=== PATIENT | female | born 1935 | race Caucasian/White ===

== ENCOUNTER 2025-04-12 20:41 | Emergency (ER) | payer OTHER ==
[~2025-04-12] VITALS: Ht 165.1 cm; Wt 84.0 kg
--- NOTE | 2025-04-12 21:00 | ED.PDOC ---
History of Present Illness HPI Comments 89 year old female presents to the ED via EMS with a chief complaint of fall injury onset today (04/12/25). Patient was walking on her porch, when she tripped, fell forward, hitting her face on the floor. Immediately after fall, patient began experiencing epistaxis, headache, RT hip pain, RT knee pain, dizzi ness. Upon EMS arrival, patient was weak, not able to ambulate on her own, placed on a c-collar. Upon ED arrival BP was 163/130. PMHx HLD. Denies LOC, nausea, vomiting, diarrhea, chest pain, shortness of breath, abdominal pain, dysuria, hematuria, fevers, chills. No other symptoms or modifying factors present at this time. Time Seen by MD: 20:50 Reviewed Notes: Medications, Allergies Allergies: Coded Allergies: NO KNOWN ALLERGIES (Unverified , 04/12/25) Information Source: Patient, Emergency Med Personnel Mode of Arrival: EMS Severity: Moderate Timing: Hours Duration: Since onset Prehospital treatment: C-Collar Vital Signs Vital Signs Date Time Temp Pulse Resp B/P (MAP) Pulse Ox O2 Delivery O2 Flow Rate FiO2 04/13/25 01:50 98.3 72 22 148/72 (97) 93 98.3 04/12/25 22:35 Room Air* 0 21 Physical Exam General: Awake, alert and oriented. No acute distress. Skin: Skin in warm, dry and intact. Appropriate color for ethnicity. HEENT: The head is normocephalic and atraumatic. Conjunctivae are clear without exudates or hemorrhage. Sclera is non-icteric. EOM are intact. No signs of nystagmus. Eyelids are normal in appearance without swelling or lesions. Oral mucosa is pink and moist. Epistaxis from left naris showed with pressure. Neck: Patient is C-collar. The neck is supple with normal range of motion. No JVD. Positive C-spine tenderness. Cardiac: Heart rate and rhythm are normal. No murmurs, gallops, or rubs are auscultated. Respiratory: No signs of respiratory distress. Lung sounds are clear in all lobes bilaterally without rales, rhonchi, or wheezes. Abdominal: Abdomen is soft, non-tender without distention, guarding or rigidity. Bowel sounds are present and normoactive in all four quadrants. Extremities: Right hip tender. Mild abrasion over right anterior knee. Positive tenderness. No effusion, deformity.Positive L-spine tenderness. Neurological: The patient is awake, alert and oriented to person, place, and time with normal speech. Speech is clear. There is no facial asymmetry. Moving all extremities spontaneously. Psychiatric: Appropriate mood and affect. Good judgement and insight. Review of Systems: As stated in HPI Past Medical History PAST MEDICAL HISTORY: High Lipids Surgical History: Denies all surgeries PUBLIC SPEAKER History: No Pertinent PUBLIC SPEAKER History Family History Family History: Reviewed,noncontributory to illness, No family hx of Cancer, No family hx of DM, No family hx of Heart bibi, No family hx of HTN, No family hx ofKidney bibi, No family hx of Liver bibi, No family hx of Lung bibi, No family hx of Stroke Social History Smoker: Non-Smoker Alcohol: Denies ETOH Use Drugs: Denies Drug Use Lives In: Home Was a procedure done? Was a procedure done?: No EKG EKG : Pulse Rate (adult): 98 Cardiac Rhythm: NSR Comments No STEMI Differential Dx Considerations may include: Differential diagnoses considered include but are not limited to closed head injury, skull fracture, TBI, long bone fracture, rib fracture, pneumothorax, spinal fracture, spinal injury, cardiac contusion, organ laceration, pelvic fracture, laceration, soft tissue injury, vascular injury, other X-Ray, Labs, Meds, VS Vital Signs Date Time Temp Pulse Resp B/P (MAP) Pulse Ox O2 Delivery O2 Flow Rate FiO2 04/13/25 01:50 98.3 72 22 148/72 (97) 93 98.3 04/13/25 01:05 75 14 137/83 (101) 96 04/13/25 00:00 92 04/12/25 23:01 98.2 87 22 132/56 (81) 96 98.2 04/12/25 22:35 92 16 94 Room Air* 0 21 04/12/25 21:45 83 20 165/72 (103) 98 04/12/25 21:11 97.6 100 20 182/89 (120) 96 97.6 04/12/25 21:00 98 04/12/25 20:44 98 Lab Test 04/12/25 22:20 04/12/25 21:13 Range/Units Troponin I High Sensitivity 5 5 </=34 ng/L White Blood Count 7.6 4.4-10.8 10^3/uL Red Blood Count 5.28 H 4.0-5.20 10^6/uL Hemoglobin 15.9 12.2-16.2 g/dL Hematocrit 46.6 H 36.0-46.0 % Mean Corpuscular Volume 88.4 80.0-100.0 fL Mean Corpuscular Hemoglobin 30.1 28.0-32.0 pg Mean Corpuscular Hemoglobin Concent 34.1 32.0-36.0 g/dL Red Cell Distribution Width 14.8 H 11.8-14.3 % Platelet Count 193 140-450 10^3/uL Mean Platelet Volume 7.7 6.9-10.8 fL Neutrophils (%) (Auto) 74.1 37.0-80.0 % Lymphocytes (%) (Auto) 16.3 10.0-50.0 % Monocytes (%) (Auto) 7.8 0.0-12.0 % Eosinophils (%) (Auto) 1.1 0.0-7.0 % Basophils (%) (Auto) 0.7 0.0-2.0 % Neutrophils # (Auto) 5.6 1.6-8.6 10 ^3/uL Lymphocytes # (Auto) 1.2 0.4-5.4 10 ^3/uL Monocytes # (Auto) 0.6 0-1.3 10 ^3/uL Eosinophils # (Auto) 0.1 0-0.8 10 ^3/uL Basophils # (Auto) 0.1 0-0.2 10 ^3/uL Nucleated Red Blood Cells 0.2 % Sodium Level 140 136-145 mmol/L Potassium Level 4.0 3.5-5.1 mmol/L Chloride Level 106 98-107 mmol/L Carbon Dioxide Level 26 20-31 mmol/L Anion Gap 8 5-15 Blood Urea Nitrogen 19 9-23 mg/dL Creatinine 1.30 H 0.550-1.02 mg/dL Glomerular Filtration Rate Calc 40 >90 mL/min BUN/Creatinine Ratio 14.6 10.0-20.0 Serum Glucose 120 H 74-106 mg/dL Calcium Level 10.3 8.7-10.4 mg/dL B-Type Natriuretic Peptide 127.47 0-100 pg/mL Current Medications Medications (Trade) Dose Ordered Sig/Chirag Route Start Time Stop Time Status Last Admin Sodium Chloride 1,000 ml @ 1,000 mls/hr Q1H ONCE IV 04/12/25 21:00 04/12/25 21:59 DC 04/12/25 21:55 Acetaminophen (Tylenol Tablet) 650 mg ONCE ONCE PO 04/12/25 21:00 04/12/25 21:01 DC 04/12/25 21:55 Sodium Chloride 1,000 ml @ 100 mls/hr Q10H ONCE IV 04/12/25 23:00 04/13/25 08:59 04/12/25 23:00 Naproxen (Naprosyn Tablet) 500 mg ONCE ONCE PO 04/13/25 00:00 04/13/25 00:01 DC 04/13/25 00:04 [place] [address] Ph: [phone] DIAGNOSTIC IMAGING Diagnostic Imaging Report : [id number] Signed PATIENT: MARICARMEN MAJOR ACCT: [id number] UNIT: [id number] : 1935 LOC: ER ROOM / BED: / AGE / SEX: 89 / F ADM STATUS: REG ER SERVICE 49 ORDERING PHYSICIAN: CAITLIN ASHRAF MD PROCEDURE(s): LS2CT - LS SPINE WO CONTRAST REASON: fall injury ORDER NUMBER(s): [id number], ACCESSION NUMBER(s): [id number] EXAM: CT LS SPINE WO CONTRAST INDICATION: fall injury TECHNIQUE: Axial images of the lumbar spine have been obtained along with coronal and sagittal reformatted images. CT scans at this facility use dose modulation, iterative reconstruction, and/or weight based dosing when appropriate to reduce radiation dose to as low as reasonably achievable. Dosage: CTDI 36.11. DLP: 1533.21 COMPARISON: None FINDINGS: 5 ltm-xrm-acyffqu lumbar-type vertebrae. Grade 1 anterolisthesis of L4 on L5 . L1 inferior endplate Schmorl node. Multilevel moderate to severe degenerative changes of the lumbar spine. Chronic fracture deformity of the right transverse process of L3. Diffuse demineralization. Severe degenerative changes of the right hip with moderate degenerative changes of the left hip. T12-L1: Mild posterior disc bulge without significant spinal canal stenosis. Bprn-bd-avjjvsqy bilateral neural foramina stenosis. L1-L2: Posterior disc osteophyte complex without significant spinal canal stenosis. Severe right with mild to moderate left-sided neural foramina s tenosis. L2-L3: Mild posterior disc bulge without significant spinal canal stenosis. Zkam-vm-xntpxrfj right with severe left-sided neural foramina stenosis. L3-L4: Mild posterior disc bulge without significant spinal canal stenosis. Moderate right with severe left-sided neural foramina stenosis. L4-L5: No significant spinal canal stenosis. Gnnr-aa-lkyiwzaf bilateral neural foramina stenosis. L5-S1: Significant spinal canal stenosis. Severe left-sided neural foramina stenosis. The paraspinal muscles are unremarkable. Sigmoid diverticulosis without diverticulitis. Moderate amount of fecal material within the visualized colon. Partially imaged large hiatal hernia. Absq-ax-kpjayung atrophy of bilateral kidneys. Left renal parapelvic cysts. Mild wall thickening of the urinary bladder may be due to inadequate distention. 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 Ewch-ik-wbaezytm atherosclerotic calcification of the aorta and bilateral iliacs. Left basilar ground-glass and solid opacities which may represent atelectasis with pneumonia not excluded. Right basilar atelectasis. IMPRESSION: No evidence of acute traumatic fractures. Multilevel moderate to severe degenerative changes as detailed above. If symptoms persist, consider MRI for further evaluation. ATED BY: DARIELA ATKINS DO DICTATED DATE/TIME: 04/12/252199 SIGNED BY: DARIELA ATKINS DO SIGNED DATE/TIME: 04/12/252199 CC: [place] [address] Ph: [phone] DIAGNOSTIC IMAGING Diagnostic Imaging Report : [id number] Signed PATIENT: MARICARMEN MAJOR ACCT: [id number] UNIT: [id number] : 1935 LOC: ER ROOM / BED: / AGE / SEX: 89 / F ADM STATUS: REG ER SERVICE 49 ORDERING PHYSICIAN: CAITLIN ASHRAF MD PROCEDURE(s): RKN3 - R KNEE 3V XRAY REASON: fall injury ORDER NUMBER(s): [id number], ACCESSION NUMBER(s): [id number] CLINICAL INDICATION: fall injury TECHNIQUE: 3 radiographic views of the right knee were obtained. Comparison: None FINDINGS/IMPRESSION: There is no evidence of acute fracture or dislocation. Narrowing of all 3 compartments of the right knee suggests degenerative or arthritic changes. No acute fracture is noted. The alignment is anatomical. There is no radiopaque foreign body. ATED BY: MICHEAL OCONNOR Jr., DO DICTATED DATE/TIME: 04/12/252145 SIGNED BY: MICHEAL OCONNOR Jr., DO SIGNED DATE/TIME: 04/12/252145 CC: [place] [address] Ph: [phone] DIAGNOSTIC IMAGING Diagnostic Imaging Report : [id number] Signed PATIENT: MARICARMEN MAJOR ACCT: [id number] UNIT: [id number] : 1935 LOC: ER ROOM / BED: / AGE / SEX: 89 / F ADM STATUS: REG ER SERVICE 49 ORDERING PHYSICIAN: CAITLIN ASHRAF MD PROCEDURE(s): RHIP - R HIP COMPLETE XRAY REASON: fall injury ORDER NUMBER(s): [id number], ACCESSION NUMBER(s): [id number] CLINICAL INDICATION: fall injury TECHNIQUE: 3 radiographic views of the right hip were obtained. Comparison: None FINDINGS/IMPRESSION: There is normal configuration of the right femoral head and neck junction which may be from degenerative changes. Otherwise, no evidence of acute fracture or dislocation. Severe degenerative changes of the right with moderate degenerative changes of the left hips. Severe degenerative changes of the lower lumbar spine. Mild degenerative changes of bilateral SI joints. The alignment is anatomical. Phleboliths are noted within the pelvis. Moderate amount of fecal material within the visualized colon. If patient can not ambulate, consider CT for further evaluation. ATED BY: DARIELA ATKINS DO DICTATED DATE/TIME: 04/12/252200 SIGNED BY: DARIELA ATKINS DO SIGNED DATE/TIME: 04/12/252200 CC: [place] [address] Ph: [phone] DIAGNOSTIC IMAGING Diagnostic Imaging Report : [id number] Signed PATIENT: MARICARMEN MAJOR ACCT: [id number] UNIT: [id number] : 1935 LOC: ER ROOM / BED: / AGE / SEX: 89 / F ADM STATUS: REG ER SERVICE 49 ORDERING PHYSICIAN: CAITLIN ASHRAF MD PROCEDURE(s): HWOCT - HEAD WITHOUT CONTRAST REASON: fall injury ORDER NUMBER(s): [id number], ACCESSION NUMBER(s): [id number] CT HEAD WITHOUT CONTRAST INDICATION: fall injury, head injury EXAM DATE: 04/12/2025 09:13 PM COMPARISON: None RADIATION DOSE: CTDIvol: 57.26 mGy, DLP: 1128.42 mGy*cm PROCEDURE: CT scans of the head were obtained from the vertex to the skull base. Sagittal and coronal reconstructions were provided. All CT scans at this medical facility are performed using dose modulation techniques as appropriate to a performed exam including the following: Automated exposure control was utilized; adjustment of the MA and/or KV according to patient size; and use of iterative reconstruction technique. FINDINGS: No acute territorial infarct, intracranial hemorrhage, or mass effect. There are global involutional changes with compensatory prominence of the ventricles and sulci. Patchy periventricular and subcortical white matter hypoattenuation is nonspecific but may be related to small vessel ischemic disease. The orbits are normal. There is debris within the sphenoid sinuses. The osseous structures are unremarkable. IMPRESSION: 1. No acute territorial infarct, intracranial hemorrhage, or mass effect. 2. Age-related involutional changes. Chronic microvascular changes. 3. Sphenoid sinus disease. ATED BY: CHANDRIKA BLEVINS MD DICTATED DATE/TIME: 04/12/252145 SIGNED BY: CHANDRIKA BLEVINS MD SIGNED DATE/TIME: 04/12/252145 CC: [address] [address] Ph: [phone] DIAGNOSTIC IMAGING Diagnostic Imaging Report : [id number] Signed PATIENT: MARICARMEN MAJOR ACCT: [id number] UNIT: [id number] : 1935 LOC: ER ROOM / BED: / AGE / SEX: 89 / F ADM STATUS: REG ER SERVICE 49 ORDERING PHYSICIAN: CAITLIN ASHRAF MD PROCEDURE(s): CS2 - CERVICAL WITHOUT CONTRAST REASON: fall injury ORDER NUMBER(s): [id number], ACCESSION NUMBER(s): [id number] CT OF THE CERVICAL SPINE WITHOUT CONTRAST HISTORY: fall injury, neck pain COMPARISON: None TECHNIQUE: Helical images through the cervical spine were obtained without contrast. Sagittal and coronal reformats were obtained. One or more of the following radiation dose reduction techniques were used for this examination: automated exposure control, adjustment of the mA and/or kV according to patient size, use of iterative reconstruction technique. Dose: CTDIvol: 21.64, DLP: 553.07 mGy.cm FINDINGS: No acute displaced fracture. Degenerative changes of the cervical spine characterized by endplate osteophytosis and intervertebral disc space narrowing. A disc osteophyte complex at C5-6 effaces the thecal sac. There is minimal grade 1 anterolisthesis of C2 on C3, C7 on T1, T1 on T2, and T2 on T3. Degenerative uncovertebral and facet hypertrophy contributes to multilevel neural foraminal narrowing. There is pleural-parenchymal scarring at the lung apices. There are sncf-hmywwid-ftth-right thyroid nodules containing calcification. Incidental note of fluid levels within the sphenoid sinuses. IMPRESSION: 1. No acute displaced fracture. 2. Degenerative changes of the cervical spine as detailed. 3. Bhqy-gxrxgfy-rgwz-right thyroid nodules, which may be further evaluated with a nonemergent thyroid ultrasound if clinically indicated. 4. Sphenoid sinus disease. ATED BY: CHANDRIKA BLEVINS MD DICTATED DATE/TIME: 04/12/252143 SIGNED BY: CHANDRIKA BLEVINS MD SIGNED DATE/TIME: 04/12/252143 CC: Time of 1ST Reevaluation: 21:20 Reevaluation 1ST: Unchanged Patient Education/Counseling: Need For Follow Up Family Education/Counseling: No Family Present SEPSIS Sepsis Screen Physician Orders Electrocardigram (04/12/25 20:47) Pigment And Lacquer Mixer (04/12/25 ) Orthostatic Vital Signs (04/12/25 ) Saline Lock (04/12/25 20:50) Fall Precautions Initiated (04/12/25 20:50) R Hip Complete Xray (04/12/25 20:50) Head Without Contrast (04/12/25 20:50) Cervical Without Contrast (04/12/25 20:50) Ls Spine Wo Contrast (04/12/25 20:50) Vital Signs Q1HR (04/12/25 20:54) Notify Md If Abnormal Vs (04/12/25 20:54) R Knee 3v Xray (04/12/25 20:50) Sodium Chloride 0.9% (04/12/25 23:00) Urinalysis (04/13/25 00:22) Imaging Transfer Request (04/13/25 01:00) Vital Signs Date Time Temp Pulse Resp B/P (MAP) Pulse Ox O2 Delivery O2 Flow Rate FiO2 04/13/25 01:50 98.3 72 22 148/72 (97) 93 98.3 04/13/25 01:05 75 14 137/83 (101) 96 04/13/25 00:00 92 04/12/25 23:01 98.2 87 22 132/56 (81) 96 98.2 04/12/25 22:35 92 16 94 Room Air* 0 21 04/12/25 21:45 83 20 165/72 (103) 98 04/12/25 21:11 97.6 100 20 182/89 (120) 96 97.6 04/12/25 21:00 98 04/12/25 20:44 98 Laboratory Tests Test 04/12/25 21:13 White Blood Count 7.6 10^3/uL (4.4-10.8) Medications Medications Dose Ordered Sig/Chirag Route Start Time Stop Time Status Last Admin Dose Admin Acetaminophen 650 mg ONCE ONCE PO 04/12/25 21:00 04/12/25 21:01 DC 04/12/25 21:55 Naproxen 500 mg ONCE ONCE PO 04/13/25 00:00 04/13/25 00:01 DC 04/13/25 00:04 Sodium Chloride 1,000 ml @ 100 mls/hr Q10H ONCE IV 04/12/25 23:00 04/13/25 08:59 04/12/25 23:00 Sodium Chloride 1,000 ml @ 1,000 mls/hr Q1H ONCE IV 04/12/25 21:00 04/12/25 21:59 DC 04/12/25 21:55 Departure 1 Departure Time of Disposition: 22:55 Impression: Primary Impression: Dizziness Additional Impressions: ZACHARIAH (acute kidney injury) Fall Head injury Thyroid nodule Disposition: 02 SHORT TERM HOSPITAL Condition: Stable Comments 89 year old female s/p fall and head injury. Still reporting dizziness, WANG, difficulty ambulation Workup concerning for ZACHARIAH Discussed with Dr. Felipe with [facility], Case #[id number] Patient stable for transfer Extensive evaluation was performed in attempt to identify or rule out: (See differential diagnosis section) The following tests were ordered, and results were reviewed by me and discussed with patient: (See diagnostic results section) The following test were independently interpreted by me: EKG I reviewed and agreed with the following test results read by other providers: CT Head I reviewed the following notes from the pt's past medical encounters: N/A Additional information was gathered from interviewing the following independent historians: EMS personnel Discussion of management or test interpretation with external physician/other qualified health out of school hours care worker: YES Decision regarding hospitalization or escalation of hospital level of care: Risk and benefits of admission for further treatment of patient's condition was considered. Due to patient's current clinical condition, high risk of decline and poor outcome if discharged and need for further inpatient management and monitoring, patient will be admitted to the hospital. Drug therapy requiring intensive monitoring for toxicity: N/A Parenteral controlled substances: N/A Decision regarding elective major surgery with identified patient or procedure risk factors: N/A Decision regarding emergency major surgery: N/A Decision not to resuscitate or to de-escalate care because of poor prognosis: N/A Diagnosis or treatment significantly limited by social determinants of health: N/A Critical Care Note Critical Care Time?: No Stability Stability form required: No I personally scribed for CAITLIN ASHRAF MD ([email or web address]) on 04/12/25 at 21:00. Electronically submitted by Lyly Reeves ([email or web address]). I personally scribed for CAITLIN ASHRAF MD ([email or web address]) on 04/12/25 at 22:13. Electronically submitted by Lyly Reeves ([email or web address]). CAITLIN ASHRAF MD Apr 12, 2025 21:00
[2025-04-12 21:27] LABS: Hematocrit 46.6 % (36.0-46.0); Hemoglobin 15.9 g/dL (12.2-16.2); Mean Corpuscular Hemoglobin 30.1 pg (28.0-32.0); Mean Corpuscular Volume 88.4 fL (80.0-100.0); Nucleated Red Blood Cells % 0.2 %
[2025-04-12 21:35] LABS: Anion Gap 8 (5-15); Carbon Dioxide 26 mmol/L (20-31); Chloride 106 mmol/L (98-107); Potassium 4.0 mmol/L (3.5-5.1); Sodium 140 mmol/L (136-145)
[2025-04-12 21:36] LABS: Calcium 10.3 mg/dL (8.7-10.4)
[2025-04-12 21:41] LABS: BUN/Creatinine Ratio 14.6 (10.0-20.0); Blood Urea Nitrogen 19 mg/dL (9-23)
[2025-04-12 21:44] LABS: Glucose 120 mg/dL (74-106)
--- NOTE | 2025-04-12 21:47 | DVH ---
CT OF THE CERVICAL SPINE WITHOUT CONTRAST HISTORY: fall injury, neck pain COMPARISON: None TECHNIQUE: Helical images through the cervical spine were obtained without contrast. Sagittal and cor onal reformats were obtained. One or more of the following radiation dose reduction techniques were u sed for this examination: automated exposure control, adjustment of the mA and/or kV according to pat ient size, use of iterative reconstruction technique. Dose: CTDIvol: 21.64, DLP: 553.07 mGy.cm FINDINGS: No acute displaced fracture. Degenerative changes of the cervical spine characterized by endplate os teophytosis and intervertebral disc space narrowing. A disc osteophyte complex at C5-6 effaces the t hecal sac. There is minimal grade 1 anterolisthesis of C2 on C3, C7 on T1, T1 on T2, and T2 on T3. D egenerative uncovertebral and facet hypertrophy contributes to multilevel neural foraminal narrowing. There is pleural-parenchymal scarring at the lung apices. There are pokm-smlefgj-nosw-right thyroid n odules containing calcification. Incidental note of fluid levels within the sphenoid sinuses. IMPRESSION: 1. No acute displaced fracture. 2. Degenerative changes of the cervical spine as detailed. 3. Hmsg-hvdldxi-cqok-right thyroid nodules, which may be further evaluated with a nonemergent thyroid ultrasound if clinically indicated. 4. Sphenoid sinus disease.
--- NOTE | 2025-04-12 21:48 | DVH ---
CLINICAL INDICATION: fall injury TECHNIQUE: 3 radiographic views of the right knee were obtained. Comparison: None FINDINGS/IMPRESSION: There is no evidence of acute fracture or dislocation. Narrowing of all 3 compartments of the right knee suggests degenerative or arthritic changes. No acut e fracture is noted. The alignment is anatomical. There is no radiopaque foreign body.
--- NOTE | 2025-04-12 21:49 | DVH ---
CT HEAD WITHOUT CONTRAST INDICATION: fall injury, head injury EXAM DATE: 04/12/2025 09:13 PM COMPARISON: None RADIATION DOSE: CTDIvol: 57.26 mGy, DLP: 1128.42 mGy*cm PROCEDURE: CT scans of the head were obtained from the vertex to the skull base. Sagittal and coronal reconstructions were provided. All CT scans at this medical facility are performed using dose modulation techniques as appropriate t o a performed exam including the following: Automated exposure control was utilized; adjustment of th e MA and/or KV according to patient size; and use of iterative reconstruction technique. FINDINGS: No acute territorial infarct, intracranial hemorrhage, or mass effect. There are global involutional changes with compensatory prominence of the ventricles and sulci. Patchy periventricular and subcorti [place] white matter hypoattenuation is nonspecific but may be related to small vessel ischemic disease. The orbits are normal. There is debris within the sphenoid sinuses. The osseous structures are unrem arkable. IMPRESSION: 1. No acute territorial infarct, intracranial hemorrhage, or mass effect. 2. Age-related involutional changes. Chronic microvascular changes. 3. Sphenoid sinus disease.
[2025-04-12] MEDS: ACETAMINOPHEN 325 MG TAB PO ONE (21:55)
[2025-04-12] MEDS: SODIUM CHLORIDE 0.9% 1,000 ML IV ONE ×2 (21:55→23:00)
--- NOTE | 2025-04-12 22:02 | DVH ---
EXAM: CT LS SPINE WO CONTRAST INDICATION: fall injury TECHNIQUE: Axial images of the lumbar spine have been obtained along with coronal and sagittal reform atted images. CT scans at this facility use dose modulation, iterative reconstruction, and/or weight based dosing when appropriate to reduce radiation dose to as low as reasonably achievable. Dosage: CTDI 36.11. DLP: 1533.21 COMPARISON: None FINDINGS: 5 mei-zed-yibvuhn lumbar-type vertebrae. Grade 1 anterolisthesis of L4 on L5 . L1 inferior endplate S chmorl node. Multilevel moderate to severe degenerative changes of the lumbar spine. Chronic fracture deformity of the right transverse process of L3. Diffuse demineralization. Severe degenerative changes of the right hip with moderate degenerative changes of the left hip. T12-L1: Mild posterior disc bulge without significant spinal canal stenosis. Mcde-tp-itxrppsi bilater al neural foramina stenosis. L1-L2: Posterior disc osteophyte complex without significant spinal canal stenosis. Severe right with mild to moderate left-sided neural foramina stenosis. L2-L3: Mild posterior disc bulge without significant spinal canal stenosis. Dqgu-go-mgxvpraw right wi th severe left-sided neural foramina stenosis. L3-L4: Mild posterior disc bulge without significant spinal canal stenosis. Moderate right with sever e left-sided neural foramina stenosis. L4-L5: No significant spinal canal stenosis. Kkya-mc-kryywxru bilateral neural foramina stenosis. L5-S1: Significant spinal canal stenosis. Severe left-sided neural foramina stenosis. The paraspinal muscles are unremarkable. Sigmoid diverticulosis without diverticulitis. Moderate amount of fecal material within the visualiz ed colon. Partially imaged large hiatal hernia. Jxtl-ph-tsvessqw atrophy of bilateral kidneys. Left r enal parapelvic cysts. Mild wall thickening of the urinary bladder may be due to inadequate distentio n. 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 Rmbj-qj-zfvedbvn atherosclerotic calcification of the aorta and bilateral iliacs. Left basilar ground-glass and solid opacities which may represent atelectasis with pneumonia not excl uded. Right basilar atelectasis. IMPRESSION: No evidence of acute traumatic fractures. Multilevel moderate to severe degenerative changes as detai led above. If symptoms persist, consider MRI for further evaluation.
--- NOTE | 2025-04-12 22:04 | DVH ---
CLINICAL INDICATION: fall injury TECHNIQUE: 3 radiographic views of the right hip were obtained. Comparison: None FINDINGS/IMPRESSION: There is normal configuration of the right femoral head and neck junction which may be from degenerat akhil changes. Otherwise, no evidence of acute fracture or dislocation. Severe degenerative changes of the right with moderate degenerative changes of the left hips. Severe degenerative changes of the lower lumbar spine. Mild degenerative changes of bilateral SI joints. The alignment is anatomical. Phleboliths are noted within the pelvis. Moderate amount of fecal material within the visualized col on. If patient can not ambulate, consider CT for further evaluation.
[2025-04-12 22:35] VITALS: PULSE 92; RESP 16; O2SAT 94
[2025-04-13] MEDS: NAPROXEN 500 MG TAB PO ONE (00:04)
[2025-04-13 01:50] VITALS: BP 148/72; PULSE 72; RESP 22; TEMP 98.3; O2SAT 93
--- NOTE | 2025-04-13 12:07 | ECG ---
[facility] Test Date: 2025-04-12 Test Time: 20:44:10 Pat Name: MARICARMEN MAJOR Department: ED Room: Gender: F Roll Handler: RONNA : 1935 Requested By: CAITLIN ASHRAF Order Number: [id number] Reading MD: [place] Measurements Intervals Counselor Rate: 98 P: -18 RI: 191 QRS: 255 QRSD: 86 T: 76 QT: 342 QTc: 437 Interpretive Statements Sinus rhythm Right superior axis Probable right ventricular hypertrophy Abnormal lateral Q waves Electronically Signed On 04-13-2025 19:07:36 PDT by P[place] Please click the below link to view image of tracing.
== END 2025-04-13 02:21 | disposition short-term general hospital (02) ==
LOC: ER 20:41 → EDBD 20:41 → ER 04-13 02:21
DX: S09.8XXA Other specified injuries of head, initial encounter (principal); R42 Dizziness and giddiness; E04.1 Nontoxic single thyroid nodule; N17.9 Acute kidney failure, unspecified; E78.5 Hyperlipidemia, unspecified; W01.0XXA Fall on same level from slipping, tripping and stumbling without subsequent striking against object, initial encounter; Y93.01 Activity, walking, marching and hiking; Y92.89 Other specified places as the place of occurrence of the external cause; Y99.8 Other external cause status
CPT/HCPCS: 36415; 70450; 72125; 72131; 73502; 73562; 80048; 83880; 84484; 85025; 93005; 96360; 99285; J7030